=== PATIENT | female | born 1950 | race Caucasian/White ===

== ENCOUNTER 2017-02-21 10:35 | Inpatient (IN) | payer MEDICAID, MEDICARE ==
[~2017-02-21] VITALS: Ht 157.5 cm; Wt 63.0 kg
[~2017-02-21 10:35] MED LIST: BENA10TA2 PO; CYCL-10 PO; DOCU-144 PO; GABA-531 PO; GLIP5TAB13 PO; IBUP-1969 PO; METF1000 PO; OMEP20CA10 PO; PARO20TA51 PO; POTA-118 PO; SIMV20TA2 PO; TRAM50TA92 PO
[2017-02-21 11:08] VITALS: BP_SYST 153
[2017-02-21 14:15] LABS: BASOPHILS # (AUTO) 0.1 K/uL (0.0-0.2); BASOPHILS % (AUTO) 0.7 % (0.0-2.0); EOSINOPHILS # (AUTO) 0.1 K/uL (0.0-0.4); EOSINOPHILS % (AUTO) 1.1 % (0.0-4.0); HEMATOCRIT 48.9 % (36-48); HEMOGLOBIN 15.5 g/dL (12.0-16.0); LYMPHOCYTES # (AUTO) 3.3 K/uL (1.0-5.5); LYMPHOCYTES % (AUTO) 26.5 % (20.5-51.5); MEAN CORPUSCULAR HEMOGLOBIN 30 pg (27-31); MEAN CORPUSCULAR HGB CONC 32 % (32-36); MEAN CORPUSCULAR VOLUME 94 fL (79.0-98.0); MONOCYTES # (AUTO) 0.6 K/uL (0.0-1.0); MONOCYTES % (AUTO) 4.6 % (1.7-9.3); NEUTROPHILS # (AUTO) 8.2 K/uL (1.8-7.7); NEUTROPHILS % (AUTO) 67.1 % (40.0-70.0); PLATELET COUNT (AUTO) 315 K/uL (130-430); RED BLOOD CELL COUNT(AUTO) 5.19 MIL/uL (4.2-6.2); RED CELL DISTRIBUTION WIDTH 12.7 % (9.0-15.0); WHITE BLOOD COUNT (AUTO) 12.3 K/uL (4.8-10.8)
[2017-02-21 14:20] LABS: CALCIUM 9.6 mg/dL (8.4-11.0); CREATININE 0.7 mg/dL (0.55-1.30)
[2017-02-21] MEDS ORDERED: ONDANSETRON HCL 4 MG/2 ML VIAL IVP ONE ×2 (15:15→16:15)
[2017-02-21] MEDS ORDERED: NACL 0.9% 1,000 ML IV ONE ×2 (15:15→19:15)
[2017-02-21] MEDS: MORPHINE 4 MG/ML INJ. SYRINGE IVP ONE ×2 (16:09→16:36)
[2017-02-21 16:22] LABS: BILIRUBIN,URINE NEGATIVE (NEGATIVE); BLOOD, URINE NEGATIVE (NEGATIVE); CLARITY/URINE CLEAR (CLEAR); COLOR,URINE YELLOW (YELLOW); GLUCOSE,URINE NEGATIVE (NEGATIVE); KETONES,URINE 1+ (NEGATIVE); LEUKOCYTE ESTERASE ,URINE NEGATIVE (NEGATIVE); NITRITE, URINE NEGATIVE (NEGATIVE); PROTEIN URINE 1+ (NEGATIVE)
[2017-02-21 16:25] LABS: BACTERIA,URINE FEW /HPF (None Seen); RBC,URINE 0-3 /HPF (0-3); WBC,URINE NONE SEEN /HPF (0-3)
[2017-02-21] MEDS ORDERED: ONDANSETRON HCL 4 MG/2 ML VIAL ONE (16:25)
[2017-02-21 16:26] LABS: MUCUS,URINE None Seen /LPF (None Seen)
[2017-02-21] MEDS ORDERED: METOCLOPRAMIDE HCL 10 MG/2 ML VIAL IVP ONE ×2 (17:30→19:45)
[2017-02-21] MEDS ORDERED: IOHEXOL 100 ML IV ONE (17:52)
[2017-02-21] MEDS ORDERED: PARO-41 PO (19:02)
[2017-02-21] MEDS ORDERED: BENA10TA2 PO (19:02)
[2017-02-21] MEDS ORDERED: GLIP-172 PO (19:02)
[2017-02-21] MEDS ORDERED: ONDA4TAB5 PO (19:02)
[2017-02-21] MEDS ORDERED: DOCU-144 PO (19:02)
[2017-02-21] MEDS ORDERED: ZOLP5TAB2 PO (19:02)
[2017-02-21] MEDS ORDERED: IBUP-1479 PO (19:02)
[2017-02-21] MEDS ORDERED: CYCL-10 PO (19:02)
[2017-02-21] MEDS ORDERED: GABA-531 PO (19:02)
[2017-02-21] MEDS ORDERED: GLU500 PO (19:02)
[2017-02-21] MEDS ORDERED: FURO-149 PO (19:02)
[2017-02-21] MEDS ORDERED: ONDANSETRON HCL 4 MG/2 ML VIAL IVP PRN (19:30)
[2017-02-21] MEDS ORDERED: DEXTROSE 50% JECT 50 ML DISP.SYRIN IVP PRN (19:30)
[2017-02-21] MEDS ORDERED: ZOLPIDEM TARTRATE 5 MG TABLET PO SCH (19:30)
[2017-02-21] MEDS ORDERED: ONDANSETRON 4 MG ODT TAB PO PRN (19:30)
[2017-02-21 19:59] VITALS: BP_SYST 137
[2017-02-21 20:00] VITALS: BP_SYST 137
[2017-02-21 20:03] VITALS: BP_SYST 137
[2017-02-21] MEDS ORDERED: DOCUSATE SODIUM 100 MG CAPSULE PO SCH (21:00)
[2017-02-21] MEDS ORDERED: IBUPROFEN 400 MG TABLET PO SCH (21:00)
[2017-02-21] MEDS ORDERED: glipiZIDE XL 5 MG TAB ( GLUCOTROL XL) PO SCH (21:00)
[2017-02-21 21:40] LABS: BILIRUBIN,DIRECT 0.1 mg/dL (0.0-0.3); TOTAL BILIRUBIN 0.4 mg/dL (0.0-1.0)
[2017-02-21] MEDS: GABAPENTIN 300 MG CAPSULE PO SCH (21:54)
[2017-02-21] MEDS: PARoxetine HCL 20 MG TABLET PO SCH (21:54)
[2017-02-21] MEDS: CYCLOBENZAPRINE HCL 10 MG TABLET (FLEXERIL) PO SCH (21:55)
[2017-02-21] MEDS ORDERED: glipiZIDE XL 5 MG TAB ( GLUCOTROL XL) PO ONE (22:02)
[2017-02-21] MEDS: INSULIN REGULAR, HUMAN 100 UNITS/ML, 10 ML VIAL (novoLIN R) SUBCUT PRN (22:09)
[2017-02-22] VITALS (7 sets, daily range): BP systolic 103–131
[2017-02-22] MEDS: METOCLOPRAMIDE HCL 10 MG/2 ML VIAL IVP SCH ×2 (01:03→06:00)
[2017-02-22] MEDS: D5NS 1,000 ML IV SCH ×3 (01:09→11:34)
[2017-02-22 07:01] LABS: BASOPHILS # (AUTO) 0.1 K/uL (0.0-0.2); BASOPHILS % (AUTO) 0.9 % (0.0-2.0); EOSINOPHILS # (AUTO) 0.3 K/uL (0.0-0.4); EOSINOPHILS % (AUTO) 3.1 % (0.0-4.0); HEMATOCRIT 39.4 % (36-48); HEMOGLOBIN 13.2 g/dL (12.0-16.0); LYMPHOCYTES # (AUTO) 3.2 K/uL (1.0-5.5); LYMPHOCYTES % (AUTO) 32.8 % (20.5-51.5); MEAN CORPUSCULAR HEMOGLOBIN 32 pg (27-31); MEAN CORPUSCULAR HGB CONC 34 % (32-36); MEAN CORPUSCULAR VOLUME 94 fL (79.0-98.0); MONOCYTES # (AUTO) 0.7 K/uL (0.0-1.0); MONOCYTES % (AUTO) 7.6 % (1.7-9.3); NEUTROPHILS # (AUTO) 5.3 K/uL (1.8-7.7); NEUTROPHILS % (AUTO) 55.6 % (40.0-70.0); PLATELET COUNT (AUTO) 249 K/uL (130-430); RED BLOOD CELL COUNT(AUTO) 4.18 MIL/uL (4.2-6.2); RED CELL DISTRIBUTION WIDTH 12.7 % (9.0-15.0); WHITE BLOOD COUNT (AUTO) 9.6 K/uL (4.8-10.8)
[2017-02-22 07:19] LABS: CALCIUM 8.4 mg/dL (8.4-11.0); CREATININE 0.69 mg/dL (0.55-1.30); PHOSPHORUS 3.8 mg/dL (2.7-4.5); POTASSIUM 3.9 mmol/L (3.5-5.1); TOTAL BILIRUBIN 0.3 mg/dL (0.0-1.0)
[2017-02-22] MEDS ORDERED: ZOLPIDEM TARTRATE 5 MG TABLET PO PRN (07:49)
[2017-02-22] MEDS ORDERED: metFORMIN HCL 500 MG TABLET PO SCH (08:00)
[2017-02-22] MEDS: BENAZEPRIL HCL 10 MG TABLET (LOTENSIN) PO SCH (09:00)
[2017-02-22] MEDS: PANTOPRAZOLE SODIUM 40 MG TAB PO SCH (10:06)
[2017-02-22] MEDS: GABAPENTIN 300 MG CAPSULE PO SCH ×3 (10:06→21:56)
[2017-02-22] MEDS: FUROSEMIDE 40 MG TABLET PO SCH (10:06)
[2017-02-22] MEDS: CYCLOBENZAPRINE HCL 10 MG TABLET (FLEXERIL) PO SCH (21:57)
[2017-02-22] MEDS: PARoxetine HCL 20 MG TABLET PO SCH (21:57)
[2017-02-23] MEDS: D5NS 1,000 ML IV SCH ×2 (01:05→11:35)
[2017-02-23 04:08] VITALS: BP_SYST 126
[2017-02-23] MEDS ORDERED: METOCLOPRAMIDE HCL 10 MG/2 ML VIAL IVP PRN (06:00)
[2017-02-23 06:19] LABS: BASOPHILS # (AUTO) 0.1 K/uL (0.0-0.2); BASOPHILS % (AUTO) 0.8 % (0.0-2.0); EOSINOPHILS # (AUTO) 0.3 K/uL (0.0-0.4); HEMATOCRIT 37.6 % (36-48); HEMOGLOBIN 12.7 g/dL (12.0-16.0); LYMPHOCYTES # (AUTO) 3.4 K/uL (1.0-5.5); LYMPHOCYTES % (AUTO) 37.7 % (20.5-51.5); MEAN CORPUSCULAR HEMOGLOBIN 32 pg (27-31); MEAN CORPUSCULAR HGB CONC 34 % (32-36); MEAN CORPUSCULAR VOLUME 95 fL (79.0-98.0); MONOCYTES # (AUTO) 0.6 K/uL (0.0-1.0); MONOCYTES % (AUTO) 6.9 % (1.7-9.3); NEUTROPHILS # (AUTO) 4.7 K/uL (1.8-7.7); NEUTROPHILS % (AUTO) 51.6 % (40.0-70.0); PLATELET COUNT (AUTO) 223 K/uL (130-430); RED BLOOD CELL COUNT(AUTO) 3.95 MIL/uL (4.2-6.2); RED CELL DISTRIBUTION WIDTH 12.6 % (9.0-15.0); WHITE BLOOD COUNT (AUTO) 9.1 K/uL (4.8-10.8)
[2017-02-23 06:30] LABS: ALBUMIN 2.7 g/dL (3.4-4.8); BILIRUBIN,DIRECT 0.1 mg/dL (0.0-0.3); CALCIUM 8.2 mg/dL (8.4-11.0); CREATININE 0.81 mg/dL (0.55-1.30); POTASSIUM 3.4 mmol/L (3.5-5.1); TOTAL BILIRUBIN 0.3 mg/dL (0.0-1.0)
[2017-02-23] MEDS: IBUPROFEN 400 MG TABLET PO PRN (07:34)
[2017-02-23 08:00] VITALS: BP_SYST 133
[2017-02-23] MEDS ORDERED: POTASSIUM CHLORIDE 40 MEQ, LIDOCAINE JECT 2% PF 100 MG 75 MG in NS 250 ML IV ONE (08:45)
[2017-02-23] MEDS ORDERED: DOCUSATE SODIUM 100 MG CAPSULE PO PRN (09:00)
[2017-02-23] MEDS: PANTOPRAZOLE SODIUM 40 MG TAB PO SCH (09:14)
[2017-02-23] MEDS: GABAPENTIN 300 MG CAPSULE PO SCH ×3 (09:14→22:11)
[2017-02-23] MEDS: FUROSEMIDE 40 MG TABLET PO SCH (09:15)
[2017-02-23] MEDS: BENAZEPRIL HCL 10 MG TABLET (LOTENSIN) PO SCH (09:15)
[2017-02-23] MEDS ORDERED: GASTROGRAFIN 120 ML ONE (10:04)
[2017-02-23 13:04] VITALS: BP_SYST 121
[2017-02-23 16:50] VITALS: BP_SYST 145
[2017-02-23 20:00] VITALS: BP_SYST 141
[2017-02-23] MEDS: CYCLOBENZAPRINE HCL 10 MG TABLET (FLEXERIL) PO SCH (22:11)
[2017-02-23] MEDS: PARoxetine HCL 20 MG TABLET PO SCH (22:12)
[2017-02-23 23:37] VITALS: BP_SYST 145
[2017-02-24] MEDS: D5NS 1,000 ML IV SCH ×4 (02:11→20:47)
[2017-02-24] MEDS: IBUPROFEN 400 MG TABLET PO PRN ×2 (02:32→20:52)
[2017-02-24 06:06] LABS: BASOPHILS # (AUTO) 0.1 K/uL (0.0-0.2); BASOPHILS % (AUTO) 0.8 % (0.0-2.0); EOSINOPHILS # (AUTO) 0.3 K/uL (0.0-0.4); EOSINOPHILS % (AUTO) 2.7 % (0.0-4.0); HEMATOCRIT 38.8 % (36-48); HEMOGLOBIN 12.9 g/dL (12.0-16.0); LYMPHOCYTES # (AUTO) 3.3 K/uL (1.0-5.5); LYMPHOCYTES % (AUTO) 34.4 % (20.5-51.5); MEAN CORPUSCULAR HEMOGLOBIN 32 pg (27-31); MEAN CORPUSCULAR HGB CONC 33 % (32-36); MEAN CORPUSCULAR VOLUME 95 fL (79.0-98.0); MONOCYTES # (AUTO) 0.7 K/uL (0.0-1.0); NEUTROPHILS # (AUTO) 5.3 K/uL (1.8-7.7); NEUTROPHILS % (AUTO) 55.1 % (40.0-70.0); PLATELET COUNT (AUTO) 228 K/uL (130-430); RED BLOOD CELL COUNT(AUTO) 4.09 MIL/uL (4.2-6.2); RED CELL DISTRIBUTION WIDTH 12.8 % (9.0-15.0); WHITE BLOOD COUNT (AUTO) 9.7 K/uL (4.8-10.8)
[2017-02-24 06:58] LABS: CALCIUM 9.1 mg/dL (8.4-11.0); CREATININE 0.51 mg/dL (0.55-1.30); POTASSIUM 3.5 mmol/L (3.5-5.1); TOTAL BILIRUBIN 0.4 mg/dL (0.0-1.0)
[2017-02-24] MEDS: GABAPENTIN 300 MG CAPSULE PO SCH ×3 (09:18→20:49)
[2017-02-24] MEDS: PANTOPRAZOLE SODIUM 40 MG TAB PO SCH (09:18)
[2017-02-24] MEDS: BENAZEPRIL HCL 10 MG TABLET (LOTENSIN) PO SCH (09:19)
[2017-02-24] MEDS: FUROSEMIDE 40 MG TABLET PO SCH (09:20)
[2017-02-24] MEDS: INSULIN REGULAR, HUMAN 100 UNITS/ML, 10 ML VIAL (novoLIN R) SUBCUT PRN ×2 (12:41→20:55)
[2017-02-24 12:45] VITALS: BP_SYST 125
[2017-02-24 17:51] VITALS: BP_SYST 133
[2017-02-24 20:26] VITALS: BP_SYST 123
[2017-02-24] MEDS: PARoxetine HCL 20 MG TABLET PO SCH (20:49)
[2017-02-24] MEDS: CYCLOBENZAPRINE HCL 10 MG TABLET (FLEXERIL) PO SCH (20:49)
[2017-02-25 00:32] VITALS: BP_SYST 138
[2017-02-25 04:48] VITALS: BP_SYST 140
[2017-02-25] MEDS: D5NS 1,000 ML IV SCH (06:11)
[2017-02-25 08:52] LABS: BASOPHILS # (AUTO) 0.1 K/uL (0.0-0.2); BASOPHILS % (AUTO) 0.7 % (0.0-2.0); EOSINOPHILS # (AUTO) 0.3 K/uL (0.0-0.4); EOSINOPHILS % (AUTO) 3.1 % (0.0-4.0); HEMATOCRIT 39.8 % (36-48); HEMOGLOBIN 13.4 g/dL (12.0-16.0); LYMPHOCYTES # (AUTO) 3.2 K/uL (1.0-5.5); LYMPHOCYTES % (AUTO) 33.1 % (20.5-51.5); MEAN CORPUSCULAR HEMOGLOBIN 32 pg (27-31); MEAN CORPUSCULAR HGB CONC 34 % (32-36); MEAN CORPUSCULAR VOLUME 94 fL (79.0-98.0); MONOCYTES # (AUTO) 0.6 K/uL (0.0-1.0); MONOCYTES % (AUTO) 6.1 % (1.7-9.3); NEUTROPHILS # (AUTO) 5.6 K/uL (1.8-7.7); PLATELET COUNT (AUTO) 244 K/uL (130-430); RED BLOOD CELL COUNT(AUTO) 4.25 MIL/uL (4.2-6.2); RED CELL DISTRIBUTION WIDTH 12.7 % (9.0-15.0); WHITE BLOOD COUNT (AUTO) 9.8 K/uL (4.8-10.8)
[2017-02-25 09:13] LABS: CALCIUM 8.9 mg/dL (8.4-11.0); CREATININE 0.69 mg/dL (0.55-1.30)
[2017-02-25 09:15] VITALS: BP_SYST 136
[2017-02-25 09:23] LABS: ALBUMIN 3.1 g/dL (3.4-4.8); TOTAL BILIRUBIN 0.5 mg/dL (0.0-1.0)
[2017-02-25] MEDS: BENAZEPRIL HCL 10 MG TABLET (LOTENSIN) PO SCH (09:23)
[2017-02-25] MEDS: PANTOPRAZOLE SODIUM 40 MG TAB PO SCH (09:23)
[2017-02-25] MEDS: GABAPENTIN 300 MG CAPSULE PO SCH (09:23)
[2017-02-25] MEDS: FUROSEMIDE 40 MG TABLET PO SCH (09:23)
[2017-02-25 10:56] VITALS: BP_SYST 142
[2017-02-25] MEDS: INSULIN REGULAR, HUMAN 100 UNITS/ML, 10 ML VIAL (novoLIN R) SUBCUT PRN (11:17)
[2017-02-25 12:00] VITALS: BP_SYST 142
== END 2017-02-25 13:23 | disposition home or self-care (01) | DRG 282 ==
LOC: SED 10:35 → SMU 19:41 → MERGE 19:41 → SMU 19:44
PROVIDERS: ADMIT Internal Medicine Hospice and Palliative Medicine; ATTEND Internal Medicine Hospice and Palliative Medicine
DX: K85.90 Acute pancreatitis without necrosis or infection, unspecified (principal); K31.84 Gastroparesis; E11.43 Type 2 diabetes mellitus with diabetic autonomic (poly)neuropathy; K56.7 Ileus, unspecified; K57.90 Diverticulosis of intestine, part unspecified, without perforation or abscess without bleeding; G89.4 Chronic pain syndrome; I10 Essential (primary) hypertension; E78.5 Hyperlipidemia, unspecified; M19.90 Unspecified osteoarthritis, unspecified site; M79.7 Fibromyalgia; Z90.49 Acquired absence of other specified parts of digestive tract; Z88.5 Allergy status to narcotic agent; Z79.899 Other long term (current) drug therapy
CPT/HCPCS: 36415; 71010; 74250-TC; 76700-TC; 80048; 80053; 80076; 81000-TC; 82962; 83605; 83690-TC; 84100-TC; 84484; 85025; 87040-TC; 93005; 96361; 96374; 96375; 99285; J1815; J2270; J2405; J2765; J3480; J7030; J7042; J7050; Q9963; Q9967

== ENCOUNTER 2020-09-16 22:07 | Emergency (ER) | payer OTHER ==
[~2020-09-16] VITALS: Ht 157.5 cm; Wt 59.0 kg
[2020-09-16 22:07] VITALS: BP_SYST 117
[~2020-09-16 22:07] MED LIST changes: -BENA10TA2 PO; +BENA10TA73 PO; +FURO-149 PO; +GLIP10TA21 PO; +GLU500 PO; +IBUP-1968 PO; -OMEP20CA10 PO; +OMEP20CA15 PO; +ONDA4TAB5 PO; +PARO-41 PO; +PARO-63 PO; -PARO20TA51 PO; -POTA-118 PO; +POTA10TA15 PO; +ZOLP5TAB2 PO
--- NOTE | 2020-09-16 22:26 | NUR ---
Patient to ER bed 1 to gown for evaluation. Side rails up.
--- NOTE | 2020-09-16 22:27 | NUR ---
ER Dr. Vargas at bedside examining patient.
--- NOTE | 2020-09-16 22:27 | NUR ---
Patient BIB from home by caregiver. C/O generalized weakness x today. Per patient reported, patient was on the floor, no fell, no injury, could not get up ~ one hour by herself, called her family/caregiver to help and BIB to ER. Hx DM, Diabetic Neuropathy, Fibromyalgia. 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
--- NOTE | 2020-09-16 22:40 | NUR ---
# 22 gauge angiocath placed to left forearm. Use of asceptic technique. Opsite placed over site. Blood return noted. Blood for lab drawn from site. Flushed with 10 cc of normal saline. No evidence of infiltration noted. Patient tolerated well.
[2020-09-16] MEDS ORDERED: ROSU40TA PO (23:05)
[2020-09-16] MEDS ORDERED: RIVA10TA PO (23:05)
[2020-09-16] MEDS ORDERED: PREG75CA PO (23:05)
[2020-09-16] MEDS ORDERED: EFF37 PO (23:05)
[2020-09-16] MEDS ORDERED: GLU500 PO (23:05)
[2020-09-16] MEDS ORDERED: DIVA250T PO (23:05)
[2020-09-16] MEDS ORDERED: GLIP10TA21 PO (23:05)
[2020-09-16] MEDS ORDERED: BENA10TA73 PO (23:05)
[2020-09-16] MEDS ORDERED: DULO60CA41 PO (23:05)
[2020-09-16] MEDS ORDERED: SULF500T60 PO (23:05)
--- NOTE | 2020-09-16 23:12 | NUR ---
Medication reconciliation completed with information provided by patient 's medication (Patient brought medication with her). Any prior medication reconciliation on file was reviewed and corrected.
--- NOTE | 2020-09-16 23:16 | NUR ---
Patient transported to radiology via gurney, accompanied by RT.
[2020-09-16 23:24] LABS: BASOPHILS # (AUTO) 0.1 K/uL (0.0-0.2); BASOPHILS % (AUTO) 0.4 % (0.0-2.0); EOSINOPHILS # (AUTO) 0.1 K/uL (0.0-0.4); EOSINOPHILS % (AUTO) 0.5 % (0.0-4.0); HEMATOCRIT 39.2 % (36-48); HEMOGLOBIN 12.9 g/dL (12.0-16.0); LYMPHOCYTES # (AUTO) 2.6 K/uL (1.0-5.5); LYMPHOCYTES % (AUTO) 23.3 % (20.5-51.5); MEAN CORPUSCULAR HEMOGLOBIN 32 pg (27-31); MEAN CORPUSCULAR HGB CONC 33 % (32-36); MEAN CORPUSCULAR VOLUME 98 fL (79.0-98.0); MONOCYTES # (AUTO) 0.8 K/uL (0.0-1.0); NEUTROPHILS # (AUTO) 7.7 K/uL (1.8-7.7); NEUTROPHILS % (AUTO) 68.8 % (40.0-70.0); PLATELET COUNT (AUTO) 194 K/uL (130-430); RED BLOOD CELL COUNT(AUTO) 4.01 MIL/uL (4.2-6.2); RED CELL DISTRIBUTION WIDTH 14.8 % (9.0-15.0); WHITE BLOOD COUNT (AUTO) 11.2 K/uL (4.8-10.8)
--- NOTE | 2020-09-16 23:27 | NUR ---
Patient transported to Bed 1.
[2020-09-16 23:33] LABS: ANION GAP 12 (5-15); CALCIUM 9.1 mg/dL (8.4-11.0); CHLORIDE 104 mmol/L (98-107); CREATININE 0.76 mg/dL (0.55-1.30); POTASSIUM 3.9 mmol/L (3.5-5.1); SODIUM SERUM 141 mmol/L (136-145); UREA NITROGEN, BLOOD 17 mg/dL (8-21)
[2020-09-16 23:38] LABS: ALANINE AMINOTRANSFERASE 16 U/L (12-78); ALBUMIN 3.2 g/dL (3.4-4.8); ASPARTATE AMINOTRANSFERASE 22 U/L (10-37); TOTAL BILIRUBIN 0.3 mg/dL (0.0-1.0)
--- NOTE | 2020-09-16 23:42 | NUR ---
[facility] Dr. Pi[facility]. Patient A/O,X4
[2020-09-16 23:43] LABS: GFR AFRICAN AMERICAN 97 mL/min (>90); GLUCOSE 27 mg/dL (70-99)
--- NOTE | 2020-09-16 23:43 | NUR ---
Given orange juice x 3, Patient able to drink.
[2020-09-16 23:45] LABS: VALPROIC ACID 52 ug/mL (50-100)
[2020-09-16] MEDS ORDERED: D5/0.45 NS 500 ML IV ONE (23:45)
[2020-09-16] MEDS ORDERED: DEXTROSE 50% JECT 50 ML DISP.SYRIN IVP ONE (23:45)
[2020-09-16 23:50] LABS: INR 1.1 (0.8-1.2)
[2020-09-16 23:51] LABS: ACETONE, SERUM NEGATIVE (NEGATIVE)
--- NOTE | 2020-09-16 23:51 | NUR ---
Given sandwiches , Patient able to eat.
--- NOTE | 2020-09-17 00:08 | NUR ---
BS-195, Dr. Pierson notified.
[2020-09-17] MEDS ORDERED: NACL 0.9% 1,000 ML IV ONE (00:45)
[2020-09-17 00:48] LABS: BILIRUBIN,URINE NEGATIVE (NEGATIVE); BLOOD, URINE NEGATIVE (NEGATIVE); CLARITY/URINE CLEAR (CLEAR); COLOR,URINE YELLOW (YELLOW); GLUCOSE,URINE TRACE (NEGATIVE); KETONES,URINE TRACE (NEGATIVE); LEUKOCYTE ESTERASE ,URINE NEGATIVE (NEGATIVE); NITRITE, URINE NEGATIVE (NEGATIVE); PH,URINE 5.5 (5.0-8.0); PROTEIN URINE NEGATIVE (NEGATIVE); UROBILINOGEN,URINE 0.2 (0.2-1.0)
--- NOTE | 2020-09-17 01:20 | NUR ---
Patient to be transferred to [facility]. Is being transferred due to higher level of care. Receiving facility has accepting physician and available space. ER physician has signed transfer form. Patient or responsible democrat has agreed to transfer and signed form. Patient belongings inventoried and will be sent with patient. Copy of nursing notes, lab reports, EKG, Physicians Orders and X-rays to be sent with patient. Report called to at receiving facility. Receiving physician is Dr. Belen Traylor. [facility] ambulance service has been called for transfer. ETA is 30 minutes.
--- NOTE | 2020-09-17 01:52 | NUR ---
Medic-1 keg filler unit at bedside for which report given to [employer]. Patient informed of transfer to [facility] for which she verbalized the understanding and reason for transfer.
[2020-09-17 01:53] VITALS: BP_SYST 102
--- NOTE | 2020-09-17 01:56 | NUR ---
COVID SWAB collected and sent to lab for analysis. .
[2020-09-17] MEDS ORDERED: DIPHENHYDRAMINE HCL 50 MG CAPSULE PO ONE (02:00)
== END 2020-09-17 01:56 | disposition short-term general hospital (02) ==
LOC: SED 22:07
DX: E11.649 Type 2 diabetes mellitus with hypoglycemia without coma (principal); R53.1 Weakness; I10 Essential (primary) hypertension; Z88.5 Allergy status to narcotic agent; Z79.84 Long term (current) use of oral hypoglycemic drugs; Z79.899 Other long term (current) drug therapy; Z20.822 Contact with and (suspected) exposure to COVID-19
CPT/HCPCS: 36415; 70450; 71045; 76376; 80053; 80164; 81003; 82009; 82550; 82962; 83605; 84484; 85025; 85610; 85730; 87426; 93005; 96361; 96365; 96366; 96375; 99285; J7030; 96376